=== PATIENT | female | born 1955 | race American Indian/Alaskan Native ===

== ENCOUNTER 2017-10-06 11:18 | Outpatient (CLI) | payer MEDICAID ==
[2017-10-06] MEDS ORDERED: XYLOCAINE TOPICAL 4% TP ONE (12:15)
== END 2017-10-06 11:19 | disposition home or self-care (01) ==
LOC: WOUND 11:18
PROVIDERS: ATTEND Surgery
DX: L02.31 Cutaneous abscess of buttock (principal); Z86.73 Personal history of transient ischemic attack (TIA), and cerebral infarction without residual deficits; Z90.710 Acquired absence of both cervix and uterus; Z87.891 Personal history of nicotine dependence
CPT/HCPCS: 87075; 87116; G0463; 99205

== ENCOUNTER 2017-10-13 13:14 | Outpatient (CLI) | payer MEDICAID ==
[2017-10-13] MEDS ORDERED: XYLOCAINE TOPICAL 4% TP ONE ×2 (13:28→13:56)
== END 2017-10-13 13:15 | disposition home or self-care (01) ==
LOC: WOUND 13:14
PROVIDERS: ATTEND Surgery
DX: L02.31 Cutaneous abscess of buttock (principal); Z86.73 Personal history of transient ischemic attack (TIA), and cerebral infarction without residual deficits; Z90.710 Acquired absence of both cervix and uterus; Z87.891 Personal history of nicotine dependence
CPT/HCPCS: 99215; G0463

== ENCOUNTER 2017-11-10 13:12 | Outpatient (CLI) | payer MEDICARE | END 2017-11-10 13:13 | disposition home or self-care (01) | LOC: WOUND 13:12 | PROVIDERS: ATTEND Surgery | DX: L02.31 Cutaneous abscess of buttock (principal); Z86.73 Personal history of transient ischemic attack (TIA), and cerebral infarction without residual deficits; Z90.710 Acquired absence of both cervix and uterus; Z87.891 Personal history of nicotine dependence | CPT/HCPCS: 99214; G0463 ==